=== PATIENT | female | born 1950 | race Caucasian/White ===

== ENCOUNTER 2023-08-17 06:14 | Day surgery (SDC) | payer MEDICARE, OTHER, SELFPAY ==
[2023-08-17] VITALS (8 sets, daily range): BP systolic 81–134; BP diastolic 46–109; BMI 25.8
== END 2023-08-17 11:45 | disposition home or self-care (01) ==
LOC: GI 06:14
PROVIDERS: ATTENDING PHYSICIAN Internal Medicine Gastroenterology; FAMILY PHYSICIAN Family Medicine
DX: D12.0 Benign neoplasm of cecum (principal); D12.2 Benign neoplasm of ascending colon; D12.3 Benign neoplasm of transverse colon; D12.5 Benign neoplasm of sigmoid colon; K64.0 First degree hemorrhoids; K63.89 Other specified diseases of intestine
CPT/HCPCS: 45390; 45385; 88305

== ENCOUNTER 2023-09-02 22:18 | Inpatient (IN) | payer MEDICARE, OTHER, SELFPAY ==
[2023-09-02 15:21] VITALS: BP 132/80
[2023-09-02 16:10] LABS: % Basophils 0.6 % (0-2); % Eosinophils 0.8 % (0-6); % Immature Granulocytes 0.4 % (0-0.5); % Lymphocytes 6.2 % (20.5-51.1); % Monocytes 9.1 % (1.7-9.3); % Neutrophils 82.9 % (42.2-75.2); Absolute Lymphocytes 0.3 10^3/uL (1.2-3.4); Absolute Monocytes 0.5 10^3/uL (0.1-0.6); Absolute Neutrophils 4.3 10^3/uL (1.4-6.5); Hematocrit 35.5 % (37.0-47.0); Mean Corp Hgb Conc. 33.8 g/dL (33.0-37.0); Mean Corpuscular Hgb 31.3 pg (27.0-31.0); Mean Corpuscular Volume 92.7 fL (81.0-99.0); Mean Platelet Volume 10.4 fL (7.4-10.4); Nucleated Red Blood Cells % 0 %; Platelet Count 200 10^3/uL (130-400); Red Blood Cell Count 3.83 10^6/uL (4.20-5.40); Red Cell Dist. Width 14.4 % (11.5-14.5); White Blood Cell Count 5.2 10^3/uL (4.8-10.8)
[2023-09-02 16:26] LABS: ALT (SGPT) 21 U/L (0-35); AST (SGOT) 32 U/L (14-36); Albumin 2.9 g/dl (3.5-5.0); Alkaline Phosphatase 76 U/L (38-126); Blood Urea Nitrogen 14 mg/dl (7-17); Calcium 8.1 mg/dl (8.4-10.2); Carbon Dioxide 21 mmol/L (22-30); Chloride 107 mmol/L (98-107); Glucose 92 mg/dl (70-99); Potassium 2.7 mmol/L (3.5-5.1); Sodium 134 mmol/L (135-145); Total Bilirubin 0.2 mg/dl (0.2-1.3); Total Protein 5.3 g/dl (6.3-8.2); eGFR > 60.00
[2023-09-02 17:27] LABS: Lipase 96 U/L (23-300)
[2023-09-02 17:29] VITALS: BP 132/75
[2023-09-02] MEDS: TORADOL 15 MG IV (18:10)
[2023-09-02] MEDS: KCL 260 MEQ IV (19:17)
[2023-09-02] MEDS: TYLENOL 1000 MG PO (20:18)
[2023-09-02 20:43] LABS: COVID-19 Antigen Negative (Negative)
[2023-09-02 21:05] LABS: Lactic Acid 0.6 mmol/L (0.7-2.0)
--- NOTE | 2023-09-02 21:34 | HPS.HSE ---
Addendum entered and electronically signed by Rachael Talavera MD 09/02/23 23:58:
Patient seen and examined in conjunction with OBSTETRICS SCRUB NURSE. Agree with findings of history of present illness as well as physical exam and assessment and plan as described by the OBSTETRICS SCRUB NURSE H&P.
Briefly disease a 73-year-old female was past medical history of rheumatoid arthritis, hypothyroidism and colonic polyps who presents to the emergency department with multiple complaints but mostly abdominal pain and fever. Patient is status post
colonoscopy 2 weeks ago with resection of multiple polyps throughout the colon. Since then she been having abdominal discomfort which she describes as a bloating sensation, decreased appetite and low po intake. Spouse reports that previous of
sweating and chills in the morning. No alfred fevers measured at home. No sick contacts. She has no nausea or vomiting. She has no diarrhea. Chest pain no hematochezia. Has been no melena.
Vital signs are stable except for a fever of 100.9. On exam her abdomen is nontender to palpation. There is no abdominal bloating rebound or guarding.
CBC shows no leukocytosis with stable hemoglobin and platelet count. Chemistries are notable for a potassium of 2.7 and a serum of 134 with normal BUN and creatinine. Lactic acid was within normal limits. CT of the abdomen pelvis shows no acute
findings except for fluid-filled colon suggestive of antecedent diarrhea. Negative influenza and COVID viral testing.
Impression: Fever, dehydration and abdominal bloating with possible colonic ileus. Unclear that the intra-abdominal findings are related to the fever. Any transient bacteremia will have a 'several days ago immediately after the procedure. She is
otherwise well-appearing. She has no leukocytosis. She has no diarrhea nausea or vomiting. Benign abdominal exam. Blood culture sent. S/P ceftriaxone/flagyl in ED. Monitor off antibiotics. Supportive care for now with clear liquid diet, pain
control, antiemetics. GI consult in the morning. Hypokalemia and low sodium due to low PO intake. IV fluids, potassium supplementation. Rest of plan as per OBSTETRICS SCRUB NURSE note.
Original Note:
Family Physician
-
Family Physician: Scar Graham
Chief Complaint
-
abdominal pain
History of Present Illness
73 year old with PMH for rheumatoid arthritis, hypothyroidism presented to us with abdominal pain since yesterday. patient underwent colonoscopy on with multiple polyps removed. since then poor appetite, worsening weakness. she started having
diffuse abdominal pain and felt very gassy. took gas x with no relief in her symptoms. she had low grade temp at home. stated some PHAM. denied dizzy or syncopal episode. denied chest pain, sob. denied n/v/d. denied dysuria or hematuria.
CT with �No significant acute abnormality identified in the abdomen or pelvis, as described above.
2. Prominent fluid-filled colon throughout suggesting antecedent diarrhea status.
3. Cholelithiasis.
received Flagyl and ceftriaxone in ER. patient also received iv kcl for hypokalemia.
admitting for further management.
Medical History
Past Medical History
Past Medical History: Reports Other
Additional Past Medical History:
rheumatoid arthritis
hypothyroidism
Past Surgical History: Reports None
Social History
Tobacco: Non-smoker
Alcohol: None
Drug: None
Personal:
Living: With Family
Family History
Family History: Not pertinent
Allergies / Home Medications
Allergies reflects when Allergies were last updated in [facility].
Home Medications with original date entered in [employer] [facility]
Allergy/Medication List:
Allergies
Allergy/AdvReac Type Severity Reaction Status Date / Time
Penicillins Allergy Hives Verified 09/02/23 15:20
shellfish derived Allergy Nausea / Verified 09/02/23 15:20
Vomiting
Home Medications
Coq-10 1 tab PO DAILY 10/11/10
Fiber Tabs 4 cap PO DAILY 10/11/10
Senna 4 tab PO DAILY 10/11/10
Trazodone 450 tab PO HS 10/11/10
calcium carb-vit D3-minerals 600 mg calcium-400 unit tablet (Caltrate 600-D Plus Minerals) 1 tab PO DAILY 10/11/10
cholecalciferol (vitamin D3) 10 mcg (400 unit) tablet (Vitamin D3) 400 units PO DAILY 10/11/10
levothyroxine 125 mcg tablet (Synthroid) 112 mcg PO DAILY 10/11/10
Curcumin 1,000 mg PO DAILY 08/17/23
Folate 1,333 mcg PO DAILY 08/17/23
collagen 600 mg PO DAILY 08/17/23
glucosamine-chondroitin 250 mg-200 mg tablet (Osteo Bi-Flex) 2 tab PO DAILY 08/17/23
methotrexate 20 mg PO WEEKLY 08/17/23
prednisone 5 mg tablet 5 mg PO BID PRN flare up 08/17/23
Review of Systems
-
Constitutional: Reports Fever
EENT: Reports No Symptoms
Respiratory: Reports No Symptoms
Cardiac: Reports No Symptoms
Abdomen/GI: Reports Abdominal Pain
: Reports No Symptoms
Musculoskeletal: Reports No Symptoms
Skin: Reports No Symptoms
Neurological: Reports No Symptoms
Endocrine: Reports No Symptoms
Hematologic/Lymphatic: Reports No Symptoms
Psych: Reports No Symptoms
Physical Exam
Vital Signs
Vital Signs
Temp Pulse Resp BP Pulse Ox
100.9 F H 91 20 132/75 95
09/02/23 19:23 09/02/23 19:23 09/02/23 19:23 09/02/23 17:29 09/02/23 19:23
Physical Exam
General: Well Developed, Well Nourished and No Apparent Distress
HEENT: NormoCephalic, Moist mucous membranes and Atraumatic
Respiratory: Clear
Cardiac: S1/S2 and Regular Rhythm; No Murmur or Rub
GI: Soft, Non Tender, Non Distended and Normal Bowel Sounds; No Organomegaly
Rectal: Deferred by Provider
Musculoskeletal: No Clubbing, No Cyanosis and No Edema
Skin: No Rash
Neuro: AO x 3 and Nonfocal/grossly intact
Psych: Calm
Laboratory Results
-
09/02/23 15:39
09/02/23 15:39
Laboratory Results
Lactic Acid 0.6 mmol/L (0.7-2.0) L 09/02/23 20:20
Total Bilirubin 0.2 mg/dl (0.2-1.3) 09/02/23 15:39
AST 32 U/L (14-36) 09/02/23 15:39
ALT 21 U/L (0-35) 09/02/23 15:39
Alkaline Phosphatase 76 U/L (38-126) 09/02/23 15:39
Lipase 96 U/L (23-300) 09/02/23 15:39
Data Reviewed
-
CT Scan: Report Reviewed by me
Lab Data: Labs Reviewed by me
Impression/Plan
-
#abdominal pain unclear cause likely viral
-Ct abdomen pelvis with No significant acute abnormality identified in the abdomen or pelvis, as described above.. Prominent fluid-filled colon throughout suggesting antecedent diarrhea status. Cholelithiasis.
-colonoscopy with multiple polyps removed
-clear liquid diet
-fluid continued for hydration
-received Flagyl and ceftriaxone in ER
-defer abx at this time
-GI consulted
-Tylenol prn for fever and pain
-Motrin prn
#fever likely viral
-covid,influenza negative
-temp 100.9
-blood culture sent from ER
-Tylenol prn for fever
#hypokalemia likely from poor oral intake
-k 2.7
-supplemented with iv kcl
-will give 40k oral
-monitor BMP in am
#RA
-on methotrexate
#Hypothyroidism
-levothyroxine continued
#DVT prophylaxis
-Lovenox
#CODE status
-full code
--- NOTE | 2023-09-02 21:43 | ED.GENMED ---
History of Present Illness
<Heri Lincoln Jr., PA-C - Last Filed: 09/02/23 21:46>
General
Chief Complaint: Abdominal Pain
Source: patient and spouse
Exam Limitations: none
Time Seen by Provider: 09/02/23 15:42
Nursing documentation reviewed up to this point in time: agreed with
Travel History
Have you had any contact with someone who has COVID-19?: No
Do you have any symptoms of coronavirus? Fever > 100 degrees, chills, cough, shortness of breath, sore throat, loss of taste or smell, muscle aches, or headache?: No
History of Present Illness
History of Present Illness:
73-year-old female presenting to the emergency department today with concerns of abdominal pain worsening over the past 2 weeks. Starting over the past 24 hours worsening pain in the left side and right side of the abdomen. Had colonoscopy 2 weeks
ago had multiple polyps removed. Chest pain shortness of breath urinary symptoms.
Past History
<Heri Lincoln Jr., PA-C - Last Filed: 09/02/23 21:46>
Past History
ED Past Medical History: Other (Rheumatism)
ED Past Surgical History: Gynecological and Orthopedic
Social History
Tobacco: Non-smoker
Alcohol: None
Drug: None
Personal:
Living: with family
Review of Systems
<Heri Lincoln Jr., PA-C - Last Filed: 09/02/23 21:46>
Review of Systems
Allergies reviewed?: Yes
All Other Systems: ROS reviewed and negative except as documented in HPI and ROS
Phy Exam
<Heri Lincoln Jr., PA-C - Last Filed: 09/02/23 21:46>
Physical Exam
Physical Exam:
GENERAL: Alert , in no apparent distress
EYE: pupils equal and reactive
NECK: Supple, no significant adenopathy.
ENT: o/p clr, mmm.
CARDIAC: Regular rate and rhythm .
LUNGS: Clear breath sounds bilaterally, no acute respiratory distress, no wheezes/rales/rhonchi
ABDOMEN: Palpation left lower quadrant and right lower quadrant. Otherwise no specific guarding or peritoneal signs.
NEUROLOGICAL: Alert and oriented, no focal neuro deficits
SKIN: Warm and dry, skin intact.
MUSCULOSKELETAL: No edema, well perfused.
PSYCH: Normal and appropriate interaction.
Course
<Heri Lincoln Jr., PA-C - Last Filed: 09/02/23 21:46>
Orders/Labs/Results
Orders:
Orders
09/02/23 15:39
CBC/With Diff [Complete Blood Count/With Diff] Urgent
CMP [Comprehensive Metabolic Panel] Urgent
Lipase Urgent
Blood Culture Urgent
PATY Source: Blood/Venous
Specimen Description:
09/02/23 17:52
CT Abd/Pel (IV only)-[facility] only Urgent
Comment:
Reason For Exam: llq pain 2 weeks after coloncospy
09/02/23 18:06
Ketorolac [Toradol] 15 mg IV NOW STA
09/02/23 18:15
Potassium Chloride [KCl] 20 meq 0.9% Sodium Chloride 250 ml [Nss] 250 ml IV NOW
09/02/23 20:12
Acetaminophen [Tylenol] 1,000 mg PO NOW STA
09/02/23 20:20
COVID-19 Antigen Urgent
Source: Nasal Swab
Lactic Acid Urgent
Influenza A+B Rapid Molecular Urgent
PATY Source: Nasal Swab
Specimen Description:
09/02/23 21:27
EKG [Electrocardiogram (*1)] Urgent
Reason for Study: Abdominal Pain
EKG- Treatment ONCE
Urinalysis Reflex To Culture Urgent
CefTRIAXone [Rocephin] 2,000 mg IV NOW STA
Diphenhydramine [Benadryl] 25 mg IV NOW STA
Metoclopramide [Reglan] 10 mg IV NOW STA
MetroNIDAZOLE 500 MG/100 ML [Flagyl 500 mg] 100 ml IV NOW
09/02/23 21:34
Sterile Water [Sterile Water For Injection] 10 ml .ROUTE .[facility]
09/02/23 21:45
Blood Culture Q30M
PATY Source: Blood/Venous
Specimen Description:
09/02/23 22:15
Blood Culture Q30M
PATY Source: Blood/Venous
Specimen Description:
Abnormal Lab Results
09/02/23 09/02/23
15:39 20:20
RBC 3.83 L 10^6/uL
(4.20-5.40)
Hct 35.5 L %
(37.0-47.0)
MCH 31.3 H pg
(27.0-31.0)
Absolute Lymphs (auto) 0.3 L 10^3/uL
(1.2-3.4)
Neutrophils % 82.9 H %
(42.2-75.2)
Lymphocytes % 6.2 L %
(20.5-51.1)
Sodium 134 L mmol/L
(135-145)
Potassium 2.7 L* mmol/L
(3.5-5.1)
Carbon Dioxide 21 L mmol/L
(22-30)
Creatinine 0.5 L mg/dL
(0.6-1.0)
Lactic Acid 0.6 L mmol/L
(0.7-2.0)
Calcium 8.1 L mg/dl
(8.4-10.2)
Total Protein 5.3 L g/dl
(6.3-8.2)
Albumin 2.9 L g/dl
(3.5-5.0)
03/16/24 15:39
09/02/23 15:39
Vital Signs
Initial and Last Documented VS:
Initial Vital Signs
Temp Pulse Resp BP Pulse Ox
100.6 F H 103 16 132/80 100
09/02/23 15:21 09/02/23 15:21 09/02/23 15:21 09/02/23 15:21 09/02/23 15:21
Last Documented Vital Signs
Temp Pulse Resp BP Pulse Ox
100.9 F H 91 20 132/75 95
09/02/23 19:23 09/02/23 19:23 09/02/23 19:23 09/02/23 17:29 09/02/23 19:23
<Kvng Joya MD - Last Filed: 09/02/23 21:57>
Orders/Labs/Results
Orders:
Orders
09/02/23 15:39
CBC/With Diff [Complete Blood Count/With Diff] Urgent
CMP [Comprehensive Metabolic Panel] Urgent
Lipase Urgent
Blood Culture Urgent
PATY Source: Blood/Venous
Specimen Description:
09/02/23 17:52
CT Abd/Pel (IV only)-[facility] only Urgent
Comment:
Reason For Exam: llq pain 2 weeks after coloncospy
09/02/23 18:06
Ketorolac [Toradol] 15 mg IV NOW STA
09/02/23 18:15
Potassium Chloride [KCl] 20 meq 0.9% Sodium Chloride 250 ml [Nss] 250 ml IV NOW
09/02/23 20:12
Acetaminophen [Tylenol] 1,000 mg PO NOW STA
09/02/23 20:20
COVID-19 Antigen Urgent
Source: Nasal Swab
Lactic Acid Urgent
Influenza A+B Rapid Molecular Urgent
PATY Source: Nasal Swab
Specimen Description:
09/02/23 21:27
EKG [Electrocardiogram (*1)] Urgent
Reason for Study: Abdominal Pain
EKG- Treatment ONCE
Urinalysis Reflex To Culture Urgent
CefTRIAXone [Rocephin] 2,000 mg IV NOW STA
Diphenhydramine [Benadryl] 25 mg IV NOW STA
Metoclopramide [Reglan] 10 mg IV NOW STA
MetroNIDAZOLE 500 MG/100 ML [Flagyl 500 mg] 100 ml IV NOW
09/02/23 21:34
Sterile Water [Sterile Water For Injection] 10 ml .ROUTE .[facility]
09/02/23 21:45
Blood Culture Q30M
PATY Source: Blood/Venous
Specimen Description:
09/02/23 22:15
Blood Culture Q30M
PATY Source: Blood/Venous
Specimen Description:
Abnormal Lab Results
09/02/23 09/02/23
15:39 20:20
RBC 3.83 L 10^6/uL
(4.20-5.40)
Hct 35.5 L %
(37.0-47.0)
MCH 31.3 H pg
(27.0-31.0)
Absolute Lymphs (auto) 0.3 L 10^3/uL
(1.2-3.4)
Neutrophils % 82.9 H %
(42.2-75.2)
Lymphocytes % 6.2 L %
(20.5-51.1)
Sodium 134 L mmol/L
(135-145)
Potassium 2.7 L* mmol/L
(3.5-5.1)
Carbon Dioxide 21 L mmol/L
(22-30)
Creatinine 0.5 L mg/dL
(0.6-1.0)
Lactic Acid 0.6 L mmol/L
(0.7-2.0)
Calcium 8.1 L mg/dl
(8.4-10.2)
Total Protein 5.3 L g/dl
(6.3-8.2)
Albumin 2.9 L g/dl
(3.5-5.0)
09/02/23 15:39
09/02/23 15:39
Vital Signs
Initial and Last Documented VS:
Initial Vital Signs
Temp Pulse Resp BP Pulse Ox
100.6 F H 103 16 132/80 100
09/02/23 15:21 09/02/23 15:21 09/02/23 15:21 09/02/23 15:21 09/02/23 15:21
Last Documented Vital Signs
Temp Pulse Resp BP Pulse Ox
100.9 F H 91 20 132/75 95
09/02/23 19:23 09/02/23 19:23 09/02/23 19:23 09/02/23 17:29 09/02/23 19:23
<Heri Lincoln Jr., PA-C - Last Filed: 09/02/23 21:46>
MDM/Problems Addressed
MDM/Problems Addressed:
43-year-old female presenting to the emergency department today with concerns of worsening pain over the past weeks after having colonoscopy 2 weeks ago initially had a temperature of 100.4 upon arrival here otherwise no white count patient is on
methotrexate. No specific additional viral symptoms negative for flu and COVID. Potassium level 2.7 was given replacement potassium as well. Did not show emergent findings. Patient with ongoing severe abdominal pain still ongoing fever unclear
specific source concerns concerning the patient is is low potassium level plan to admit for further treatment and monitoring.
<Heri Lincoln Jr., PA-C - Last Filed: 09/02/23 21:46>
*Critical Care Note
Total Time (30-74mins, 75-104mins- exclusive of procedures): Not Applicable
ED Attending Note
<Heri Lincoln Jr., PA-C - Last Filed: 09/02/23 21:46>
-
Portions of this chart may have been created with voice recognition software.� Occasional wrong word or��sound alike� substitutions may have occurred due to the inherent limitations of voice recognition software.
<Kvng Joya MD - Last Filed: 09/02/23 21:57>
ED Attending Note
Patient seen and examined by attending physician: Yes
I performed the substantive portion of visit, reviewed & personally made and approve the management plan that is documented in note by myself or JACKY.: Yes
ED Attending Note:
Patient with a colonoscopy 2 weeks ago. Since then has had vague lower abdominal discomfort general weakness fatigue some myalgias.
On exam patient is nontoxic but appears weak. Mild low-grade fever.
Lungs are clear and equal. Heart regular rate and rhythm. Abdomen soft with mild left lower quadrant tenderness. No rebound or guarding no mass or hernia. Warm and dry.
Labs show hypokalemia. CBC within normal limits. CT scan negative.
Impression is low-grade fever ongoing abdominal symptoms status post colonoscopy with biopsies. On methotrexate immunosuppressive. Hypokalemia. Warrants admission for potassium replacement, further monitoring and evaluation for persistent
postprocedural fever
Discharge Plan
Departure
Patient Disposition: Admit
Date of Disposition: 09/02/23
Time of Disposition: 21:46
Admit to: Med/Surg
Admit to doctor: Karen
Presentation/result/management discussed w/ accepting MD/DO: Hospitalist
Patient with high blood pressure during this ER visit?: No
Condition: Good
Covid-19: Not Applicable
Discharge Problem:
Abdominal pain, Fever, Hypokalemia
Prescriptions:
No Action
levothyroxine [Synthroid] 125 MCG tablet
112 mcg PO DAILY
cholecalciferol (vitamin D3) [Vitamin D3] 400 UNITS tablet
400 units PO DAILY
calcium carbonate-vit D3-min [Caltrate 600-D Plus Minerals] 1 TAB tablet
1 tab PO DAILY
Coq-10
1 tab PO DAILY
Fiber Tabs
4 cap PO DAILY
Patient Comments:
OTC
Senna
4 tab PO DAILY
Trazodone
450 tab PO HS
prednisone 5 mg Tablet
5 mg PO BID PRN (Reason: flare up)
Patient Comments:
March per patient.
methotrexate
20 mg PO WEEKLY
glucosamine-chondroitin [Osteo Bi-Flex] 250-200 mg Tablet
2 tab PO DAILY
Curcumin
1,000 mg PO DAILY
Folate
1,333 mcg PO DAILY
collagen
600 mg PO DAILY
Referrals:
Scar Graham MD [Family Provider] -
Interventions
Interventions:
*Risk Screen - Suicide Last Done: 09/02/23 15:21
*General Assessment Last Done: 09/02/23 15:21
*Neglect/Abuse Screening Last Done: 09/02/23 15:21
ED- Fall Risk Assessment Last Done: 09/02/23 17:30
*ED COVID-19 Vaccine History Last Done: 09/02/23 18:18
XE-Lrjptt-Hpqonrekzy Assessment Last Done: 09/02/23 17:29
[2023-09-02] MEDS: BENADRYL 25 MG IV (21:57)
[2023-09-02] MEDS: REGLAN 10 MG IV (21:57)
[2023-09-02] MEDS: ROCEPHIN 2000 MG IV (21:58)
[2023-09-02] MEDS: FLAGYL 500 MG 100 IV (22:22)
[2023-09-02] MEDS: KCL 40 MEQ PO (22:36)
[2023-09-02 22:42] LABS: Urine Albumin Trace (Neg - Trace); Urine Bilirubin Negative (Negative); Urine Character Clear (Clear); Urine Color Yellow; Urine Glucose Negative (Negative); Urine Ketone Negative (Negative); Urine Leukocyte 1+ (Negative); Urine Nitrite Positive (Negative); Urine Occult Blood Trace (Negative); Urine Urobilinogen Negative (Neg - 1+)
[2023-09-02 22:51] LABS: Urine Bacteria Moderate (Negative)
[2023-09-02 22:52] LABS: Urine Red Blood Cell 0-2 /HPF (0-2)
[2023-09-02 23:22] VITALS: BP 108/51; BMI 27.2
[2023-09-03] MEDS: NSS 1000 IV (00:07)
[2023-09-03] MEDS: MOTRIN 400 MG PO (00:07)
[2023-09-03] MEDS: DESYREL 400 MG PO (00:49)
[2023-09-03 01:23] LABS: Glucose - Point of Care 136 mg/dl (70-99)
--- NOTE | 2023-09-03 01:43 | PTCARENOTE ---
Pt admitted for abd pain, fever, and hypokalemia. Pt also complained about headache and was given motrin 400mg at 0007. Pt asked to go to the bathroom, on the way she states she felt dizzy. Pt sat on the toilet and had very huge amount of brown
liquid stool. Pt sat on the bathroom floor and assisted back to bed. Pt was very pale, states she was very weak. At this time, a rapid response was called. Initial BP=94/45, HR=50, SpO2=95%. IVF increased to 100mL/hr. Pt's BP qzc=488/53, HR=67,
SpO2=95% on 2L NC. Hygiene given to pt, bed alarm placed and pt instructed that she is not ready to walk to the bathroom at this time and to call for help for bed leonard use. Will follow.
[2023-09-03 02:03] LABS: % Basophils 0.7 % (0-2); % Eosinophils 1.2 % (0-6); % Immature Granulocytes 0.7 % (0-0.5); % Lymphocytes 13.2 % (20.5-51.1); % Monocytes 12.5 % (1.7-9.3); % Neutrophils 71.7 % (42.2-75.2); Absolute Eosinophils 0.1 10^3/uL (0-0.7); Absolute Lymphocytes 0.6 10^3/uL (1.2-3.4); Absolute Monocytes 0.5 10^3/uL (0.1-0.6); Hematocrit 32.3 % (37.0-47.0); Hemoglobin 11.2 g/dL (12.0-16.0); Mean Corp Hgb Conc. 34.7 g/dL (33.0-37.0); Mean Corpuscular Hgb 31.7 pg (27.0-31.0); Mean Corpuscular Volume 91.5 fL (81.0-99.0); Nucleated Red Blood Cells % 0 %; Platelet Count 181 10^3/uL (130-400); Red Blood Cell Count 3.53 10^6/uL (4.20-5.40); Red Cell Dist. Width 14.6 % (11.5-14.5); White Blood Cell Count 4.2 10^3/uL (4.8-10.8)
[2023-09-03 02:32] LABS: Blood Urea Nitrogen 11 mg/dl (7-17); Calcium 7.2 mg/dl (8.4-10.2); Carbon Dioxide 14 mmol/L (22-30); Chloride 112 mmol/L (98-107); Estimated Creatinine Clearance 73 ml/min; Glucose 158 mg/dl (70-99); Magnesium 1.8 mg/dl (1.6-2.3); Sodium 135 mmol/L (135-145); eGFR > 60.00
[2023-09-03] MEDS: KCL 40 MEQ PO (03:30)
[2023-09-03] MEDS: KCL 270 MEQ IV (03:31)
[2023-09-03] MEDS: SODIUM BICARBONATE 1075 MEQ IV (03:31)
--- NOTE | 2023-09-03 04:35 | PTCARENOTE ---
Pt asked to go to the bathroom, explained to the pt that because of the of dizziness and possibly vagale episode earlier during the night, it is safe to try bed leonard. Pt angry, states that she will go to the bathroom 'by myself'. Explain to the pt
again that there is concern about her safety. Pt agreable now to try bed leonard.
[2023-09-03 05:02] VITALS: BP 111/57
--- NOTE | 2023-09-03 05:59 | W.PN.UPDATE ---
Update Note
Progress Note Update
0100 responded to ACCOUNTING ASSOCIATE for syncope
RN reports that shortly after arrival from ED, pt needed to use restroom. PT proceeded to have large amount of diarrhea and complained of dizziness and weakness and likely had a vagal episode. BP was low during this time, but once back in bed BP
normalized. PT denied that BM was bloody or black. Pt states that since her colonoscopy 2 weeks ago that she has progressively felt weaker everyday. Along with headache. CT abd done earlier essentially negative for acute findings. K was low (2.7)
and pt currently finishing K Rian. Will check cbc, bmp and mag. Explained to pt that due to weakness and vagal episode i do not recommend ambulating to bathroom during night. Activity level can be readdressed in am if pt feeling improved.
0230 K 3.0---> repleate with 40 kcl po and 40meq R rider
CO2 14 (down from 21) likely in the context of GI loss, will add bicarb to ivf, and carefully watch K
[2023-09-03] MEDS: SYNTHROID 112 MCG PO (06:12)
[2023-09-03 07:33] VITALS: BP 123/63
[2023-09-03 08:12] LABS: Hematocrit 34.7 % (37.0-47.0); Hemoglobin 11.5 g/dL (12.0-16.0); Mean Corp Hgb Conc. 33.1 g/dL (33.0-37.0); Mean Corpuscular Hgb 31.2 pg (27.0-31.0); Mean Platelet Volume 10.6 fL (7.4-10.4); Platelet Count 192 10^3/uL (130-400); Red Blood Cell Count 3.69 10^6/uL (4.20-5.40); Red Cell Dist. Width 14.6 % (11.5-14.5)
--- NOTE | 2023-09-03 08:30 | PTCARENOTE ---
Pt continued with diarrhea, green liquid this am. Sent stool specimen to r/o C.Diff. Placed pt on Enhanced Precautions. Updated Dr. Lacey, will monitor.
[2023-09-03 08:49] LABS: Blood Urea Nitrogen 9 mg/dl (7-17); Carbon Dioxide 18 mmol/L (22-30); Chloride 112 mmol/L (98-107); Estimated Creatinine Clearance 73 ml/min; Glucose 90 mg/dl (70-99); Potassium 3.6 mmol/L (3.5-5.1); Sodium 137 mmol/L (135-145); eGFR > 60.00
[2023-09-03] MEDS: PROTONIX IV 40 MG IV (09:51)
[2023-09-03] MEDS: NSS (PRESERVATIVE FREE) 10 ML IV (09:51)
[2023-09-03] MEDS: IMODIUM 2 MG PO (11:09)
[2023-09-03] MEDS: NSS IV (12:49)
--- NOTE | 2023-09-03 12:58 | W.PN.HOSP.TC ---
Today's Communication/Plan
-
repeat labs
bicarb gtt
fulls
Gi
await culture data
monitor on tele
monitor BP
Assessment / Plan
Assessment / Plan
#abdominal pain unclear cause likely viral vs. recent insufflation during C-scope
#Diarrhea likely 2/2 viral ? etiology
-Ct abdomen pelvis with No significant acute abnormality identified in the abdomen or pelvis, as described above.. Prominent fluid-filled colon throughout suggesting antecedent diarrhea status. Cholelithiasis.
-colonoscopy with multiple polyps removed
-advanced to Fulls.
-fluid continued for hydration with bicarb
-received Flagyl and ceftriaxone in ER
-hold abx at this time
-GI consulted
-Cdiff negative
-trial of imodium
-Tylenol prn for fever and pain
-Motrin prn
#Syncope likely 2/2 vasovagal
-Cont with IVF
-Check orthostatics
-Monitor on tele
-PT/OT
#fever
-covid,influenza negative
-hold abx for now.
-blood culture sent from ER pending
-Ucx pending
-Tylenol prn for fever
- Considering Patient is immunosuppressed in the setting of taking methotrexate weekly needs to be monitored closely
#hypokalemia likely from poor oral intake
#Metabolic acidosis
-replete KCL aggressively. K improved to 3.6
-Bicarb infusion continued
-Repeat labs tonight
#RA
-on methotrexate
#Hypothyroidism
-levothyroxine continued
#DVT prophylaxis
-Lovenox
#CODE status
-full code
Pt insisting on going home later today. States she will AMA if feeling better. Understands risk of fever's with pending culture data, electrolytes abnormalities, syncope overnight, etc. Undecided at the current moment.
Anticipated Discharge: > 48 hours
Subjective/Interval History
-
Date of Service: September 03, 2023
Overnight episode of syncope
CASHIER RECEPTIONIST was called
Spiked fevers on admission
Having loose bowel movements
denies lightheadedness or dizziness
Objective Data
-
Labs:
Laboratory Results
09/03/23 09/03/23
01:35 06:21
WBC 4.2 L 4.0 L
Hgb 11.2 L 11.5 L
Hct 32.3 L 34.7 L
Plt Count 181 192
Sodium 135 137
Potassium 3.0 L 3.6
Chloride 112 H 112 H
Carbon Dioxide 14 L* 18 L
BUN 11 9
Creatinine 0.6 0.6
Glucose 158 H 90
Calcium 7.2 L 7.0 L
Vital Signs:
Vital Signs
Temp Pulse Resp BP Pulse Ox
98.1 F 86 18 123/63 97
09/03/23 07:33 09/03/23 07:33 09/03/23 07:33 09/03/23 07:33 09/03/23 08:30
I&O
09/02/23 09/03/23 09/04/23
06:59 06:59 06:59
Intake Total 775 / 1255 480 / 480
Balance 775 / 1255 480 / 480
Physical Exam
-
General: Well Developed and No Apparent Distress
HEENT: Normocephalic, Atraumatic and Moist Mucous Membranes
Respiratory: Clear to Auscultation
Cardiac: Regular Rhythm and S1/S2; Negative Murmur, Rub or Gallop
GI: Soft, Nontender, Nondistended and Normal Bowel Sounds; Negative Organomegaly
Rectal: Deferred by Provider
Musculoskeletal: No Clubbing, No Cyanosis and No Edema
Skin: Negative Rash
Neuro: Awake, AO x 3, No Motor Deficits and Nonfocal/Grossly Intact
Psych: Calm
Data Reviewed
-
Total Time Spent with Patient (in minutes): 55
--- NOTE | 2023-09-03 14:44 | W.PN.UPDATE ---
Update Note
Progress Note Update
Pt tolerated fulls just now. Patient states frequency of loose stools is improving. Patient has not nausea or vomiting. No fevers this morning. Patient persistent and wants to leave AGAINST MEDICAL ADVICE. Explained to her the risk she spiked
fever on admission. Patient is immunocompromise and takes methotrexate. Patient without any pulmonary symptoms denies any cough. Patient blood culture urine culture still in lab. Patient understand the risk of spiking fever, sepsis, shock and
cardiopulmonary arrest and . Patient's spouse was at bedside who witnessed it. Patient verbalized understanding and signed the form. Recommended to follow-up with primary doctor. Recommended to drink electrolytes.
--- NOTE | 2023-09-03 14:47 | W.DCSUMMARY ---
Discharge Summary
Discharge Data
Date of Admission: 09/02/23
Date of Discharge: 09/03/23
-
Pending Results: Yes
Additional Pending Results:
Urine culture, blood culture pending recommend to follow-up with primary doctor
Hospital Course
73-year-old female past medical history of rheumatoid arthritis on methotrexate, hypothyroidism was presenting from home with abdominal pain and diarrhea. Of note patient recently had a colonoscopy where multiple polyps were resected. Patient also
spiked fever on admission and received antibiotics in the ER. Urine culture and blood cultures were sent. As with daiarrhea C. difficile was found to be negative. Patient with CT abdomen pelvis with IV contrast only which is negative for any
acute pathology. Negative for perforation. Patient also with severe hypokalemia and potassium stabilized. Patient also had an episode of vasovagal syncope overnight. Patient metabolic acidosis started to improve. Patient stated her frequency of
diarrhea is slowing down. Patient insisting on leaving AGAINST MEDICAL ADVICE. Explained to her the risk of fever, syncopal episode overnight, urine and blood culture data pending, high risk of relapse with fevers, sepsis, shock and cardiac
arrest and . Patient's spouse at bedside and both verbalized understanding and patient signed the AMA form.
Discharge Plan
-
Patient Disposition: Against Medical Advice
Referrals:
Scar Graham MD [Family Provider] -
Prescriptions:
No Action
levothyroxine [Synthroid] 125 MCG tablet
112 mcg PO DAILY
Trazodone
400 mg PO HS
methotrexate
20 mg PO WEEKLY
Discharge Date and Time
Discharge Date/Time: 09/03/23 18:14
--- NOTE | 2023-09-03 14:48 | PTCARENOTE ---
Pt advanced to full liquids at lunch, tolerated without any abdominal pain, no further diarrhea since Imodium. No N/V. Made Dr. Lacey aware that pt does not feel like she needs to stay in the hospital and wants to leave AMA.
--- NOTE | 2023-09-03 16:13 | CM ---
Addendum entered by Marjorie Ram RN 09/04/23 08:45:
dc after CM left for day.
Original Note:
Alert awake oriented patient who lives with her Scar who live in a 2 stroy home with 2 steps to enter and 14stesp to bed bathroom.She is independent in driving and in all activities of daily living.Offered VN she declined.She said she may
be dc today and her will drive her home.
No adaptive devices
Never had VN/SNF
Pharmacy [facility]
PCP Dr Graham
PLAN Home declined VN
== END 2023-09-03 18:14 | disposition left against medical advice (07) | DRG 392 ==
LOC: 4 EAST ACU 22:18
PROVIDERS: Physician Assistant; Registered Nurse; ADMITTING PHYSICIAN Internal Medicine; ATTENDING PHYSICIAN Hospitalist; EMERGENCY PHYSICIAN Emergency Medicine; FAMILY PHYSICIAN Family Medicine
DX: R10.9 Unspecified abdominal pain (principal); Z11.52 Encounter for screening for COVID-19; E87.6 Hypokalemia; M06.9 Rheumatoid arthritis, unspecified; E03.9 Hypothyroidism, unspecified; K80.20 Calculus of gallbladder without cholecystitis without obstruction
CPT/HCPCS: 74177; 80048; 80053; 81003; 81015; 82962; 83605; 83690; 83735; 85025; 85027; 87040; 87077; 87086; 87186; 87324; 87449; 87502; 87811; 93005; 96361; 96365; 96366; 96367; 96375; 99285; J7030; Q9967

== ENCOUNTER → 2025-02-18 20:22 | Outpatient (REF) | payer MEDICARE, OTHER, SELFPAY | LOC: MRI 3T 20:22 | PROVIDERS: ATTENDING PHYSICIAN Specialist; FAMILY PHYSICIAN Family Medicine | DX: M54.16 Radiculopathy, lumbar region (principal); M48.062 Spinal stenosis, lumbar region with neurogenic claudication; R51.9 Headache, unspecified | CPT/HCPCS: 70551; 72148 ==

== ENCOUNTER 2025-04-27 20:31 | Emergency (ER) | payer MEDICARE, OTHER, SELFPAY ==
[2025-04-27 20:36] VITALS: BP 127/84
[2025-04-27 21:09] LABS: Hematocrit 38.8 % (37.0-47.0); Hemoglobin 13.1 g/dL (12.0-16.0); Mean Corp Hgb Conc. 33.8 g/dL (33.0-37.0); Mean Corpuscular Volume 90.4 fL (81.0-99.0); Nucleated Red Blood Cells % 0 %; Platelet Count 260 10^3/uL (130-400); Red Cell Dist. Width 13.6 % (11.5-14.5)
[2025-04-27 21:13] LABS: INR 0.90; PT 12.4 Sec (11.4-14.6)
[2025-04-27 21:31] LABS: ALT (SGPT) 23 U/L (0-35); AST (SGOT) 24 U/L (14-36); Albumin 3.7 g/dl (3.5-5.0); Alkaline Phosphatase 81 U/L (38-126); Blood Urea Nitrogen 19 mg/dl (7-17); Calcium 10.1 mg/dl (8.4-10.2); Carbon Dioxide 29 mmol/L (22-30); Chloride 103 mmol/L (98-107); Glucose 91 mg/dl (70-99); Potassium 3.6 mmol/L (3.5-5.1); Sodium 137 mmol/L (135-145); Total Protein 6.3 g/dl (6.3-8.2); eGFR > 60.00
[2025-04-27 21:41] LABS: Troponin I 0.013 ng/ml
[2025-04-27 21:51] VITALS: BP 148/68; BMI 26.8
[2025-04-28 00:35] LABS: Troponin I 0.016 ng/ml
--- NOTE | 2025-04-28 00:40 | ED.GENMED ---
History of Present Illness
General
Chief Complaint: Chest Pain
Source: patient and spouse
Exam Limitations: none
Time Seen by Provider: 04/27/25 21:46
Nursing documentation reviewed up to this point in time: agreed with
History of Present Illness
History of Present Illness:
74-year-old female presenting to the emergency department today with concerns of a chest discomfort starting this morning described as a heaviness denies any sharp pain denies any shortness of breath nausea vomiting.
Past History
Past History
ED Past Medical History: Other (Rheumatism)
ED Past Surgical History: Gynecological and Orthopedic
Social History
Tobacco: Non-smoker
Alcohol: None
Drug: None
Personal:
Living: with family
Review of Systems
Review of Systems
Allergies reviewed?: Yes
All Other Systems: ROS reviewed and negative except as documented in HPI and ROS
Phy Exam
Physical Exam
Physical Exam:
GENERAL: Alert , in no apparent distress
EYE: pupils equal and reactive
NECK: Supple, no significant adenopathy.
ENT: o/p clr, mmm.
CARDIAC: Regular rate and rhythm .
LUNGS: Clear breath sounds bilaterally, no acute respiratory distress, no wheezes/rales/rhonchi
ABDOMEN: Soft, without focal tenderness, no r/g, no cvat
NEUROLOGICAL: Alert and oriented, no focal neuro deficits
SKIN: Warm and dry, skin intact.
MUSCULOSKELETAL: No edema, well perfused.
PSYCH: Normal and appropriate interaction.
Scores
Heart Score for Chest Pain Patients
STEMI patient?: No
History: Slightly or Non-Suspicious
ECG: Nonspecific Repolarization
Age: >/= 65 years
Risk Factors: 1 or 2 Risk Factors
Troponin: </= Normal Limit
Heart Score for Chest Pain Patients: 4
Heart Score Risk: 20.3% MACE over next 6 weeks
Course
Orders/Labs/Results
Orders:
Orders
04/27/25 20:35
ECG [Electrocardiogram (*1)] Urgent
Reason for Study: Chest Pain
EKG- Treatment ONCE
04/27/25 20:49
Complete Blood Count/With Diff Urgent
Comprehensive Metabolic Panel Urgent
Prothrombin Time Urgent
Troponin I Urgent
04/27/25 21:52
Chest [CR Chest - 2 Views ] Urgent
Comment:
Reason For Exam: cp
04/27/25 23:04
EKG- Treatment ONCE
04/27/25 23:30
Electrocardiogram (*1) Urgent
Reason for Study: Chest Pain
04/27/25 23:53
Troponin I Urgent
Abnormal Lab Results
04/27/25
20:49
MPV 10.5 H fL
(7.4-10.4)
Abs Immat Gran (auto) 0.1 H 10^3/uL
(0-0.05)
Absolute Monos (auto) 0.8 H 10^3/uL
(0.1-0.6)
Immature Gran % 0.8 H %
(0-0.5)
Monocytes % 10.7 H %
(1.7-9.3)
BUN 19 H mg/dl
(7-17)
04/27/25 20:49
04/27/25 20:49
Vital Signs
Initial and Last Documented VS:
Initial Vital Signs
Temp Pulse Resp BP Pulse Ox
97.9 F 88 18 127/84 97
04/27/25 20:36 04/27/25 20:36 04/27/25 20:36 04/27/25 20:36 04/27/25 20:36
Last Documented Vital Signs
Temp Pulse Resp BP Pulse Ox
97.9 F 68 15 148/68 98
04/27/25 20:36 04/27/25 21:51 04/27/25 21:51 04/27/25 21:51 04/27/25 21:52
MDM/Problems Addressed
MDM/Problems Addressed:
74-year-old female presenting to the emergency department for chest tightness starting this morning. On arrival vital signs are normal. Patient in distress normal heart and lung examination EKG without emergent findings labs unremarkable troponin
negative chest x-ray normal. Patient repeated troponin 3 hours as well as EKG without acute abnormalities. Patient denies any significant symptoms through majority of ER stay. Patient denies any recent trauma surgery immobilization, history of
blood clots or leg swelling. Very low risk for PE normal heart rate no signs of right heart strain. Patient vies for close outpatient follow-up with cardiology otherwise return precautions given.
*Pulse Oximetry
SaO2: 98
Oxygen Mode of Delivery: Room air
Patient hypoxic: no (98)
*Critical Care Note
Total Time (30-74mins, 75-104mins- exclusive of procedures): Not Applicable
ED Attending Note
-
Portions of this chart may have been created with voice recognition software.� Occasional wrong word or��sound alike� substitutions may have occurred due to the inherent limitations of voice recognition software.
Discharge Plan
Departure
Patient Disposition: Home (Routine Discharge)
Date of Disposition: 04/28/25
Time of Disposition: 00:40
Patient with high blood pressure during this ER visit?: No
Condition: Good
Covid-19: Not Applicable
Discharge Problem:
Chest pain
Instructions: Chest Pain DCA Follow Up
Prescriptions:
No Action
levothyroxine [Synthroid] 125 MCG tablet
112 mcg PO DAILY
Trazodone
400 mg PO HS
methotrexate
20 mg PO WEEKLY
Referrals:
Scar Graham MD [Family Provider, Family Practice]
Activity Restrictions/Additional Instructions:
You came to the emergency department today with concerns of chest discomfort. Here get a reassuring assessment. Please follow closely with cardiology. Return for any worsening, new or concerning symptoms.
Interventions
Interventions:
*Risk Screen - Suicide Last Done: 04/27/25 20:36
*General Assessment Last Done: 04/27/25 21:52
*Neglect/Abuse Screening Last Done: 04/27/25 21:52
*ED- Fall Risk Assessment Last Done: 04/27/25 21:52
*ED COVID-19 Vaccine History Last Done: 04/27/25 21:52
*ED Influenza Vaccine History Last Done: 04/27/25 21:52
ED- Cardiac Assessment Last Done: 04/27/25 21:52
Discharge Date and Time
Print Language: UPPER SORBIAN
[2025-04-28 00:50] VITALS: BP 144/79
== END 2025-04-28 01:06 | disposition home or self-care (01) ==
LOC: EMR 20:31
PROVIDERS: Physician Assistant; EMERGENCY PHYSICIAN Student in an Organized Health Care Education/Training Program; FAMILY PHYSICIAN Family Medicine
DX: R07.9 Chest pain, unspecified (principal); M79.0 Rheumatism, unspecified
CPT/HCPCS: 99284; 71046; 80053; 84484; 85025; 85610; 93005

== ENCOUNTER → 2025-05-22 15:40 | Outpatient (REF) | payer MEDICARE, OTHER, SELFPAY | LOC: RCS 15:40 | PROVIDERS: ATTENDING PHYSICIAN Nuclear Medicine Nuclear Cardiology; FAMILY PHYSICIAN Family Medicine | DX: R07.89 Other chest pain (principal); Z82.49 Family history of ischemic heart disease and other diseases of the circulatory system; I45.10 Unspecified right bundle-branch block | CPT/HCPCS: 93306 ==

== ENCOUNTER → 2025-05-26 11:18 | Outpatient (REF) | payer MEDICARE, OTHER, SELFPAY | LOC: HWRCS 11:18 | PROVIDERS: ATTENDING PHYSICIAN Nuclear Medicine Nuclear Cardiology; FAMILY PHYSICIAN Family Medicine | DX: R07.89 Other chest pain (principal); Z82.49 Family history of ischemic heart disease and other diseases of the circulatory system; I45.10 Unspecified right bundle-branch block | CPT/HCPCS: 78452; 93017; A9500; J2785 ==